=== PATIENT | female | born 1995 | race American Indian/Alaskan Native ===

== ENCOUNTER 2018-09-01 23:03 | Emergency (ER) | payer OTHER ==
[2018-09-01] MEDS ORDERED: TYLENOL ONE (23:56)
[2018-09-02] VITALS: BP 129/69
[2018-09-02] MEDS ORDERED: TYLENOL PO ONE (00:01)
--- NOTE | 2018-09-02 01:17 | XRay Report ---
PROCEDURE: XR SPINE LUMBOSACRAL 2-3V TECHNIQUE: 3 views of lumbar spine. HISTORY: Lower back pain COMPARISONS: None available. FINDINGS: Osseous mineralization is normal. There is a mild convex left lumbar curvature. The lumbosacral junct ion is incompletely visualized on the anteroposterior projection. Vertebral body heights appear maintained. There is no spondylolysis or spondylolisthesis noted. No hi gh-grade intervertebral disc space narrowing or bulky endplate osteophytes. IMPRESSION: 1. No acute osseous abnormality involving the lumbar spine. 2. Anterior posterior projection is suboptimal, the lumbosacral junction and sacroiliac joints are ou tside the [id number]. This document is electronically signed by Que Lezama DO., September 02 2018 01:15:27 AM ET
--- NOTE | 2018-09-02 01:18 | XRay Report ---
PROCEDURE: XR KNEE 3V LT TECHNIQUE: 3 views of the left knee HISTORY: Left knee pain COMPARISONS: None available. FINDINGS: Osseous mineralization is normal. There is no acute fracture or dislocation. Enthesopathy at the tibial tuberosity present. No significant joint effusion. Joint spaces are maintained without significant degenerative change or erosive arthropathy. IMPRESSION: No acute osseous abnormality or significant degenerative change. This document is electronically signed by Que Lezama DO., September 02 2018 01:16:51 AM ET
--- NOTE | 2018-09-02 01:44 | XRay Report ---
PROCEDURE: XR SHOULDER 2+V RT TECHNIQUE: 3 views of the right shoulder. HISTORY: Right shoulder pain COMPARISONS: None available. FINDINGS: Normal osseous mineralization. No acute fracture or dislocation. Joint space is maintained without si gnificant degenerative change. The acromioclavicular and coracoclavicular intervals are within normal limits. Right upper lung clear. IMPRESSION: No acute fracture, dislocation or significant degenerative change. This document is electronically signed by Que Lezama DO., September 02 2018 01:42:18 AM ET
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
== END 2018-09-02 03:25 | disposition home or self-care (01) ==
LOC: ED 23:03
DX: M25.511 Pain in right shoulder (principal); M54.5 Low back pain; J45.909 Unspecified asthma, uncomplicated; V49.49XA Driver injured in collision with other motor vehicles in traffic accident, initial encounter; Y93.89 Activity, other specified; Y92.89 Other specified places as the place of occurrence of the external cause; Y99.8 Other external cause status
CPT/HCPCS: 72100